=== PATIENT | male | born 1985 | race Caucasian/White ===

== ENCOUNTER 2016-03-29 14:17 | Inpatient (IN) | payer OTHER ==
[~2016-03-29] VITALS: Ht 185.4 cm; Wt 140.6 kg
[2016-03-29 14:31] VITALS: BP 162/94; PULSE 120; RESP 16; TEMP 99.7; O2SAT 98
[2016-03-29] MEDS ORDERED: NACL 0.9% 1,000 ML IV ONE (14:45)
[2016-03-29] MEDS ORDERED: LORazepam 2 MG/ML VIAL (FOR ER USE) IVP ONE (14:45)
[2016-03-29 14:48] LABS: BASOPHILS # (AUTO) 0.1 K/uL (0.0-0.2); BASOPHILS % (AUTO) 0.5 % (0.0-2.0); EOSINOPHILS # (AUTO) 0.3 K/uL (0.0-0.4); EOSINOPHILS % (AUTO) 1.8 % (0.0-4.0); HEMATOCRIT 47.5 % (36-54); HEMOGLOBIN 15.5 g/dL (14.0-18.0); LYMPHOCYTES # (AUTO) 3.8 K/uL (1.0-5.5); LYMPHOCYTES % (AUTO) 23.3 % (20.5-51.5); MEAN CORPUSCULAR HEMOGLOBIN 27 pg (27-31); MEAN CORPUSCULAR HGB CONC 33 % (32-36); MEAN CORPUSCULAR VOLUME 82 fL (79.0-98.0); MONOCYTES % (AUTO) 5.9 % (1.7-9.3); NEUTROPHILS # (AUTO) 11.1 K/uL (1.8-7.7); NEUTROPHILS % (AUTO) 68.5 % (40.0-70.0); PLATELET COUNT (AUTO) 396 K/uL (130-430); RED BLOOD CELL COUNT(AUTO) 5.79 MIL/uL (4.2-6.2); WHITE BLOOD COUNT (AUTO) 16.3 K/uL (4.8-10.8)
[2016-03-29 15:02] LABS: BILIRUBIN,URINE NEGATIVE (NEGATIVE); BLOOD, URINE 2+ (NEGATIVE); CLARITY/URINE CLEAR (CLEAR); COLOR,URINE YELLOW (YELLOW); GLUCOSE,URINE NEGATIVE (NEGATIVE); KETONES,URINE NEGATIVE (NEGATIVE); LEUKOCYTE ESTERASE ,URINE NEGATIVE (NEGATIVE); NITRITE, URINE NEGATIVE (NEGATIVE); PROTEIN URINE NEGATIVE (NEGATIVE); UROBILINOGEN,URINE 0.2 (0.2-1.0)
[2016-03-29 15:03] LABS: INR 1.1 (0.80-1.20); PROTHROMBIN TIME 11.9 SECS (9.5-12.5)
[2016-03-29 15:11] LABS: BARBITURATE, URINE NEGATIVE (NEG <=200); BENZODIAZEPINE, URINE NEGATIVE (NEG <=150); CANNABINOID, URINE NEGATIVE (NEG <=50); COCAINE, URINE NEGATIVE (NEG <=150); METHAMPHETAMINES SCREEN,URINE NEGATIVE (NEG <=500); OPIATE, URINE POSITIVE (NEG <=100); PHENCYCLIDINE SCREEN,URINE NEGATIVE (NEG <=25); UR TRICYCLIC ANTIDEPRESSANTS NEGATIVE (NEG <=300); URINE AMPHETAMINE NEGATIVE (NEG <=500); URINE METHADONE NEGATIVE (NEG <=200); URINE OXYCODONE SCREEN NEGATIVE (NEG <=100); URINE PROPOXYPHENE SCREEN NEGATIVE (NEG <=300)
[2016-03-29 15:22] LABS: BACTERIA,URINE FEW /HPF (None Seen); MUCUS,URINE None Seen /LPF (None Seen); RBC,URINE 0-3 /HPF (0-3); WBC,URINE 0-3 /HPF (0-3)
[2016-03-29 15:26] LABS: CALCIUM 8.8 mg/dL (8.4-11.0); CREATININE 1.02 mg/dL (0.55-1.30); POTASSIUM 3.4 mmol/L (3.5-5.1)
[2016-03-29] MEDS ORDERED: ENOXAPARIN SODIUM 120 MG/0.8 ML SYRINGE SUBCUT ONE (15:30)
[2016-03-29] MEDS ORDERED: ASPIRIN 325 MG TABLET PO ONE (15:30)
[2016-03-29 15:31] LABS: TOTAL BILIRUBIN 0.5 mg/dL (0.0-1.0); TOTAL PROTEIN, SERUM 7.5 g/dL (6.4-8.3)
[2016-03-29] MEDS ORDERED: LISI-221 PO (15:37)
[2016-03-29] MEDS ORDERED: AMLO10TA88 PO (15:37)
[2016-03-29] MEDS ORDERED: NAPR-690 PO (15:37)
[2016-03-29] MEDS ORDERED: ENOXAPARIN SODIUM 120 MG/0.8 ML SYRINGE ONE (15:40)
[2016-03-29] MEDS ORDERED: ASPIRIN 325 MG TABLET ONE (15:40)
[2016-03-29] MEDS ORDERED: cefTRIAXone 1 GM IVPB PREMIX 50 ML IV ONE (16:30)
[2016-03-29 17:18] VITALS: BP 150/71; PULSE 107; RESP 18; O2SAT 98
[2016-03-29] MEDS ORDERED: MORPHINE 2 MG/ML INJ. SYRINGE IVP PRN (19:00)
[2016-03-29] MEDS ORDERED: POTASSIUM CHLORIDE 10 MEQ TAB.PRT.SR PO PRN (19:00)
[2016-03-29] MEDS ORDERED: DOCUSATE SODIUM 100 MG CAPSULE PO PRN (19:00)
[2016-03-29] MEDS ORDERED: ZOLPIDEM TARTRATE 5 MG TABLET PO PRN (19:00)
[2016-03-29] MEDS ORDERED: MAGNESIUM SULFATE 50 ML IV PRN (19:00)
[2016-03-29] MEDS ORDERED: ONDANSETRON HCL 4 MG/2 ML VIAL IVP PRN (19:00)
[2016-03-29 19:34] VITALS: BP 130/54; PULSE 96; RESP 18; TEMP 97.8; O2SAT 97
[2016-03-29 19:36] VITALS: BP 130/54; PULSE 96; RESP 18; TEMP 97.8; O2SAT 97
[2016-03-29] MEDS: ACETAMINOPHEN 325 MG TABLET PO PRN (20:12)
[2016-03-29] MEDS: LORazepam 2 MG/ML VIAL IVP PRN (20:17)
[2016-03-29] MEDS: ATORVASTATIN 20 MG TABLET PO SCH (20:44)
[2016-03-29] MEDS: METOPROLOL TARTRATE 50 MG TABLET PO SCH (20:45)
[2016-03-30 00:21] VITALS: BP 107/71; PULSE 79; RESP 17; TEMP 98.2; O2SAT 99
[2016-03-30] MEDS: LORazepam 2 MG/ML VIAL IVP PRN ×3 (05:00→21:39)
[2016-03-30 05:02] VITALS: BP 118/68; PULSE 82; RESP 17; TEMP 98.6; O2SAT 98
[2016-03-30 07:45] LABS: BASOPHILS # (AUTO) 0.1 K/uL (0.0-0.2); BASOPHILS % (AUTO) 0.7 % (0.0-2.0); EOSINOPHILS # (AUTO) 0.4 K/uL (0.0-0.4); EOSINOPHILS % (AUTO) 2.4 % (0.0-4.0); HEMATOCRIT 48.3 % (36-54); HEMOGLOBIN 15.6 g/dL (14.0-18.0); LYMPHOCYTES # (AUTO) 3.2 K/uL (1.0-5.5); LYMPHOCYTES % (AUTO) 21.8 % (20.5-51.5); MEAN CORPUSCULAR HEMOGLOBIN 27 pg (27-31); MEAN CORPUSCULAR HGB CONC 32 % (32-36); MEAN CORPUSCULAR VOLUME 84 fL (79.0-98.0); MONOCYTES # (AUTO) 0.9 K/uL (0.0-1.0); MONOCYTES % (AUTO) 6.4 % (1.7-9.3); NEUTROPHILS % (AUTO) 68.7 % (40.0-70.0); PLATELET COUNT (AUTO) 380 K/uL (130-430); RED BLOOD CELL COUNT(AUTO) 5.78 MIL/uL (4.2-6.2); RED CELL DISTRIBUTION WIDTH 15.3 % (9.0-15.0); WHITE BLOOD COUNT (AUTO) 14.6 K/uL (4.8-10.8)
[2016-03-30] MEDS: ASPIRIN 81 MG TAB.CHEW PO SCH (08:24)
[2016-03-30] MEDS: amLODIPine BESYLATE 10 MG TABLET PO SCH (08:25)
[2016-03-30] MEDS: LISINOPRIL 20 MG TABLET PO SCH (08:25)
[2016-03-30] MEDS: METOPROLOL TARTRATE 50 MG TABLET PO SCH ×2 (08:26→21:31)
[2016-03-30] MEDS: ENOXAPARIN SODIUM 40 MG/0.4 ML SYRINGE SUBCUT SCH (08:26)
[2016-03-30] MEDS: HYDROCHLOROTHIAZIDE 25 MG TABLET (HCTZ) PO SCH (08:26)
[2016-03-30 08:29] LABS: CALCIUM 9.3 mg/dL (8.4-11.0); CREATININE 1.1 mg/dL (0.55-1.30); POTASSIUM 4.3 mmol/L (3.5-5.1)
[2016-03-30 08:38] LABS: ALBUMIN 3.6 g/dL (3.4-4.8); TOTAL BILIRUBIN 0.7 mg/dL (0.0-1.0); TOTAL PROTEIN, SERUM 7.2 g/dL (6.4-8.3)
[2016-03-30] MEDS ORDERED: NON-FORMULARY MEDICATION (Lisinopril/Hctz* (LISINOPRIL-HCTZ 20-25 Mg Tab*) 1 TAB) PO SCH (09:00)
[2016-03-30] MEDS ORDERED: PANTOPRAZOLE SODIUM 40 MG TAB PO ONE (10:30)
[2016-03-30 12:00] VITALS: BP 148/71; PULSE 84; RESP 18; TEMP 97.7; O2SAT 98
[2016-03-30 16:00] VITALS: BP 121/69; PULSE 73; RESP 16; TEMP 98.5; O2SAT 96
[2016-03-30] MEDS: cefTRIAXone 1 GM IVPB PREMIX 50 ML IV SCH (17:04)
[2016-03-30 19:40] VITALS: BP 139/79; PULSE 82; RESP 18; TEMP 97.4; O2SAT 98
[2016-03-30] MEDS: ATORVASTATIN 20 MG TABLET PO SCH (21:31)
[2016-03-30] MEDS: ACETAMINOPHEN 325 MG TABLET PO PRN (22:05)
[2016-03-31 00:13] VITALS: BP 122/58; PULSE 76; RESP 18; TEMP 98; O2SAT 97
[2016-03-31 04:10] VITALS: BP 125/70; PULSE 86; RESP 20; TEMP 98.6; O2SAT 98
[2016-03-31] MEDS: LORazepam 2 MG/ML VIAL IVP PRN ×4 (04:23→20:23)
[2016-03-31 06:49] LABS: CREATININE 1.11 mg/dL (0.55-1.30); POTASSIUM 4.5 mmol/L (3.5-5.1)
[2016-03-31 08:03] VITALS: BP 136/97; PULSE 85; RESP 18; TEMP 98.5; O2SAT 100
[2016-03-31] MEDS: amLODIPine BESYLATE 10 MG TABLET PO SCH (09:04)
[2016-03-31] MEDS: LISINOPRIL 20 MG TABLET PO SCH (09:04)
[2016-03-31] MEDS: PANTOPRAZOLE SODIUM 40 MG TAB PO SCH (09:05)
[2016-03-31] MEDS: HYDROCHLOROTHIAZIDE 25 MG TABLET (HCTZ) PO SCH (09:05)
[2016-03-31] MEDS: METOPROLOL TARTRATE 50 MG TABLET PO SCH ×2 (09:06→20:50)
[2016-03-31] MEDS: ASPIRIN 81 MG TAB.CHEW PO SCH (09:06)
[2016-03-31] MEDS: ENOXAPARIN SODIUM 40 MG/0.4 ML SYRINGE SUBCUT SCH (09:06)
[2016-03-31 12:24] VITALS: BP 126/64; PULSE 82; RESP 18; TEMP 98.8; O2SAT 99
[2016-03-31 16:08] VITALS: BP 143/71; PULSE 81; RESP 22; TEMP 98.6; O2SAT 97
[2016-03-31] MEDS: cefTRIAXone 1 GM IVPB PREMIX 50 ML IV SCH (17:51)
[2016-03-31 19:45] VITALS: BP 105/60; PULSE 85; RESP 18; TEMP 97.1; O2SAT 97
[2016-03-31] MEDS: ATORVASTATIN 20 MG TABLET PO SCH (20:50)
[2016-04-01 00:59] VITALS: BP 115/65; PULSE 82; RESP 18; TEMP 97.4; O2SAT 98
[2016-04-01 04:00] VITALS: BP 118/66; PULSE 80; RESP 18; TEMP 97.6; O2SAT 98
[2016-04-01] MEDS: LORazepam 2 MG/ML VIAL IVP PRN ×2 (05:54→10:08)
[2016-04-01 08:02] LABS: CALCIUM 9.2 mg/dL (8.4-11.0); CREATININE 0.88 mg/dL (0.55-1.30); POTASSIUM 4.2 mmol/L (3.5-5.1)
[2016-04-01 08:18] VITALS: BP 120/73; PULSE 88; RESP 18; TEMP 97.4; O2SAT 99
[2016-04-01] MEDS: ASPIRIN 81 MG TAB.CHEW PO SCH (08:19)
[2016-04-01] MEDS: PANTOPRAZOLE SODIUM 40 MG TAB PO SCH (08:19)
[2016-04-01] MEDS: amLODIPine BESYLATE 10 MG TABLET PO SCH (08:20)
[2016-04-01] MEDS: ENOXAPARIN SODIUM 40 MG/0.4 ML SYRINGE SUBCUT SCH (08:20)
[2016-04-01] MEDS: LISINOPRIL 20 MG TABLET PO SCH (08:21)
[2016-04-01] MEDS: HYDROCHLOROTHIAZIDE 25 MG TABLET (HCTZ) PO SCH (08:21)
[2016-04-01] MEDS: METOPROLOL TARTRATE 50 MG TABLET PO SCH (08:22)
[2016-04-01] MEDS ORDERED: FLUoxetine HCL 20 MG CAPSULE (PROzac) PO SCH (09:00)
[2016-04-01] MEDS: ACETAMINOPHEN 325 MG TABLET PO PRN (10:09)
[2016-04-01 12:00] VITALS: BP 107/59; PULSE 82; RESP 20; TEMP 98.6; O2SAT 97
[2016-04-01] MEDS ORDERED: PRO20 PO (14:00)
[2016-04-01] MEDS ORDERED: PRO40 PO (14:00)
[2016-04-01 15:43] VITALS: BP 107/59; PULSE 82; RESP 20; TEMP 98.6; O2SAT 97
[2016-04-01 16:05] VITALS: BP 106/60; PULSE 79; RESP 18; TEMP 98.2; O2SAT 97
== END 2016-04-01 16:33 | disposition home or self-care (01) | DRG 205 ==
LOC: SED 14:17 → STU 16:46
PROVIDERS: ADMIT General Practice; ATTEND General Practice
DX: M94.0 Chondrocostal junction syndrome [Tietze] (principal); I21.4 Non-ST elevation (NSTEMI) myocardial infarction; N39.0 Urinary tract infection, site not specified; Z68.41 Body mass index [BMI] 40.0-44.9, adult; K21.9 Gastro-esophageal reflux disease without esophagitis; E78.5 Hyperlipidemia, unspecified; F17.200 Nicotine dependence, unspecified, uncomplicated; I10 Essential (primary) hypertension; E66.01 Morbid (severe) obesity due to excess calories; E87.6 Hypokalemia; F41.1 Generalized anxiety disorder; F32.9 Major depressive disorder, single episode, unspecified; R74.0 Nonspecific elevation of levels of transaminase and lactic acid dehydrogenase [LDH]; G89.29 Other chronic pain; M54.5 Low back pain; Z79.899 Other long term (current) drug therapy; Z82.49 Family history of ischemic heart disease and other diseases of the circulatory system; Z82.3 Family history of stroke; Z71.3 Dietary counseling and surveillance; Z71.6 Tobacco abuse counseling
CPT/HCPCS: 36415; 71010; 76700-TC; 80048; 80053; 80061; 80307; 81000-TC; 83605; 83735-TC; 83880; 84484; 85025; 85379; 85610-TC; 85730-TC; 87040-TC; 93005; 93306; 96361; 96365; 96372; 96375; 99291; J0696; J1650; J2060; J7030

== ENCOUNTER 2021-05-07 09:38 | Emergency (ER) | payer SELFPAY ==
[~2021-05-07] VITALS: Ht 182.9 cm; Wt 154.2 kg
[~2021-05-07 09:38] MED LIST: AMLO10TA88 PO; LISI-221 PO; NAPR-690 PO; PRO20 PO; PRO40 PO
[2021-05-07 09:41] VITALS: BP_SYST 167
--- NOTE | 2021-05-07 09:44 | NUR ---
Patient to ER bed 7 to gown for evaluation. Side rails up. Report given to TANNER SHI.
--- NOTE | 2021-05-07 09:45 | NUR ---
Dr. Simeon at bedside examining pt.
--- NOTE | 2021-05-07 09:49 | NUR ---
Pt to bed #7 accompanied with police officers for pt to have medical clearance. Pt is A&Ox4. VSS. No chest pain and no sob. Denies n/v. There is a abscess noted on left forearm. Skin intact. Bed in lowest position.
--- NOTE | 2021-05-07 10:48 | NUR ---
Moved pt to [facility]. Pt is A&Ox4. No c/o. [employer] team member at bedside.
--- NOTE | 2021-05-07 11:30 | NUR ---
No phlebotimist available. Did lab draw using butterfly needle and using aseptic technique. Blood drawn and sent to lab.
[2021-05-07 11:42] LABS: BASOPHILS # (AUTO) 0.1 K/uL (0.0-0.2); BASOPHILS % (AUTO) 0.5 % (0.0-2.0); EOSINOPHILS # (AUTO) 0.3 K/uL (0.0-0.4); EOSINOPHILS % (AUTO) 2.2 % (0.0-4.0); HEMATOCRIT 40.8 % (36-54); HEMOGLOBIN 13.3 g/dL (14.0-18.0); LYMPHOCYTES # (AUTO) 2.3 K/uL (1.0-5.5); LYMPHOCYTES % (AUTO) 19.6 % (20.5-51.5); MEAN CORPUSCULAR HEMOGLOBIN 25 pg (27-31); MEAN CORPUSCULAR HGB CONC 33 % (32-36); MEAN CORPUSCULAR VOLUME 77 fL (79.0-98.0); MONOCYTES # (AUTO) 0.6 K/uL (0.0-1.0); MONOCYTES % (AUTO) 5.1 % (1.7-9.3); NEUTROPHILS # (AUTO) 8.4 K/uL (1.8-7.7); NEUTROPHILS % (AUTO) 72.6 % (40.0-70.0); PLATELET COUNT (AUTO) 451 K/uL (130-430); RED BLOOD CELL COUNT(AUTO) 5.28 MIL/uL (4.2-6.2); RED CELL DISTRIBUTION WIDTH 14.7 % (9.0-15.0); WHITE BLOOD COUNT (AUTO) 11.6 K/uL (4.8-10.8)
[2021-05-07] MEDS ORDERED: CLINDAMYCIN HCL 150 MG CAPSULE PO ONE (12:30)
[2021-05-07 12:48] VITALS: BP_SYST 132
[2021-05-07 12:48] LABS: CALCIUM 10.1 mg/dL (8.4-11.0); CREATININE 0.69 mg/dL (0.55-1.30); POTASSIUM 3.9 mmol/L (3.5-5.1)
--- NOTE | 2021-05-07 12:49 | NUR ---
Patient given written and verbal discharge instructions and verbalizes understanding. ER MD discussed with patient the results and treatment provided. Patient in stable condition. ID arm band removed. Rx of Clindamycin given. Patient educated on pain management and to follow up with PMD. Pain Scale . Opportunity for questions provided and answered. Medication side effect fact sheet provided.
[2021-05-07 13:06] LABS: ALBUMIN 4.3 g/dL (3.4-4.8); TOTAL BILIRUBIN 0.2 mg/dL (0.0-1.0)
[2021-05-07 13:20] LABS: C-REACTIVE PROTEIN QUANT 1.7 mg/dL (0-0.5)
== END 2021-05-07 12:48 ==
LOC: SED 09:38
DX: L02.413 Cutaneous abscess of right upper limb (principal); L02.414 Cutaneous abscess of left upper limb; I10 Essential (primary) hypertension; Z79.899 Other long term (current) drug therapy
CPT/HCPCS: 36415; 80053; 83605; 85025; 86140; 99284

== ENCOUNTER 2022-03-31 11:40 | Emergency (ER) | payer MEDICAID ==
[~2022-03-31] VITALS: Ht 182.9 cm; Wt 167.8 kg
[2022-03-31 11:58] VITALS: BP_SYST 149
[2022-03-31] MEDS ORDERED: MORPHINE 4 MG INJ. 4 MG/ML VIAL IM ONE (13:00)
[2022-03-31] MEDS ORDERED: NAPROXEN 250 MG TABLET PO ONE (13:00)
[2022-03-31] MEDS ORDERED: predniSONE 20 MG TABLET PO ONE (13:00)
[2022-03-31] MEDS ORDERED: LIDOCAINE PATCH 5% 1 EA TP ONE (13:00)
[2022-03-31] MEDS ORDERED: ONDANSETRON 4 MG ODT TAB PO ONE (13:00)
[2022-03-31] MEDS ORDERED: methocarbamoL 500 MG TABLET PO ONE (13:00)
[2022-03-31] MEDS ORDERED: KETOROLAC TROMETHAMINE 30 MG VIAL IM ONE (13:30)
[2022-03-31] MEDS ORDERED: LIDO1ADH22 TP (13:47)
[2022-03-31] MEDS ORDERED: PRED20TA PO (13:47)
[2022-03-31] MEDS ORDERED: OXYC-128 PO (13:47)
[2022-03-31] MEDS ORDERED: METH-634 PO (13:47)
[2022-03-31] MEDS ORDERED: NAPR-1172 PO (13:47)
[2022-03-31] MEDS ORDERED: HYDROcodone/ACETAMIN 10-325 MG TAB PO ONE (14:15)
[2022-03-31 15:24] VITALS: BP_SYST 144
== END 2022-03-31 15:24 | disposition home or self-care (01) ==
LOC: SED 11:40
DX: S39.012A Strain of muscle, fascia and tendon of lower back, initial encounter (principal); I10 Essential (primary) hypertension; Z79.899 Other long term (current) drug therapy; X50.1XXA Overexertion from prolonged static or awkward postures, initial encounter; Y93.89 Activity, other specified; Y92.89 Other specified places as the place of occurrence of the external cause; Y99.8 Other external cause status
CPT/HCPCS: 99284; 96372; Q0162; J7512; J1885; J2270

== ENCOUNTER 2022-03-31 15:34 | Emergency (ER) | payer MEDICAID ==
[~2022-03-31] VITALS: Ht 182.9 cm; Wt 167.8 kg
[~2022-03-31 15:34] MED LIST changes: +LIDO1ADH22 TP; +METH-634 PO; +NAPR-1172 PO; +OXYC-128 PO; +PRED20TA PO
[2022-03-31 15:55] VITALS: BP_SYST 152
[2022-03-31] MEDS ORDERED: KETOROLAC TROMETHAMINE 60 MG/2 ML VIAL IM ONE (16:30)
[2022-03-31] MEDS ORDERED: HYDROcodone/ACETAMIN 10-325 MG TAB PO ONE (19:30)
[2022-03-31] MEDS ORDERED: ONDANSETRON 4 MG ODT TAB PO ONE (19:30)
== END 2022-03-31 19:29 | disposition home or self-care (01) ==
LOC: SED 15:34
DX: M51.26 Other intervertebral disc displacement, lumbar region (principal); I10 Essential (primary) hypertension; Z79.899 Other long term (current) drug therapy
CPT/HCPCS: 99285; 72131; 76376; 96372; Q0162; J1885